=== PATIENT | male | born 1965 | race Caucasian/White ===

== ENCOUNTER 2016-05-18 22:40 | Emergency (ER) | payer OTHER ==
[~2016-05-18 22:40] MED LIST: PROTONIX40 MG PO
--- NOTE | 2016-05-18 23:49 | ED NURSING NOTES ---
Clinical Report - Nurses [facility] [address] [place] [address] 05/18/2016 22:41 Patient: ZULEIMA KEARNEY TRIAGE Triage time 22:47 May 18 2016. Chief Complaint: (HBP). SEPSIS SCREEN: Sepsis Screen: negative. Negative (no infection suspected/documented). VIVI COMA SCORE: [place] Coma Scale: 15- eyes open spontaneously (4); best verbal response- oriented x 4 (5); best motor response- obeys commands (6). --22:56 AliM 22:47 05/18/16. BP: 178/98. HR: 73. RR: 18 (regular, unlabored and normal). O2 saturation: 96%. Temp: 98.5 F (oral). Pain level now: 610. --22:56 AliM. Weight: 63.9 kg stated. Height/Length: 68 inches Per Patient. BMI: 21.4. --22:56 AliM. Medications Atenolol Oral. --22:53 AliM Tylenol PM Extra Strength Oral. --22:53 AliM Tylenol 8 Hour Oral. --22:53 AliM. Allergies No Known Drug Allergy. --22:54 AliM. History Arrived by private vehicle. Historian: patient. Accompanied by spouse. Primary physician (Ismael). This started just prior to arrival. ( Pt states he had an appt for a SSI and physician noticed high blood pressure. Physician told pt to come to ED if blood pressure does not come down. Pt and spouse has been monitoring BP today and BP has remained high. Pt also concerned about bump on inner right thigh that showed up tonight.). He has had fever (Pt reports feeling hot but no temp taken at home). No weakness, cough or difficulty breathing. Denies muscle aches. 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 PAST MEDICAL HX: Immunizations: up-to-date. SOCIAL HX: Current every day heavy tobacco smoker- 1-2 packs per day. Alcohol use; consumes two beers a day. No drug use. No infectious disease exposure. ABUSE ASSESSMENT: No report of abuse. FALL RISK ASSESSMENT: Fall risk assessment completed. No fall risk identified. NUTRITIONAL RISK ASSESSMENT: The nutritional risk assessment revealed no deficiencies. FUNCTIONAL ASSESSMENT: Functional assessment: no impairments noted. LEARNING NEEDS ASSESSMENT: The learning needs assessment revealed no barriers. SKIN INTEGRITY ASSESSMENT: Skin integrity risk assessment completed. No skin integrity risk identified. --22:56 AliM. PROBLEMS: Stomach bleeding. Myofascial Strain. Cervical Strain. Back Pain. GI Disease. Hep C. Hypertension. Hepatitis. Suture Removal. Laceration. Tetanus Status. --22:55 AliM Back Pain [RuleOut]. --22:55 AliM. ADDITIONAL SURGERIES: Endoscopy. --22:55 AliM. Interventions ID band on patient. --22:56 AliM. PHYSICAL ASSESSMENT Ambulatory to room. GENERAL / NEURO / PSYCH: Alert. Oriented X 4. Appears in no acute distress. HEENT: No facial asymmetry noted. Mucous membranes are pink. RESPIRATORY: Respirations not labored. Chest nontender. Breath sounds within normal limits. CVS: Normal sinus rhythm noted. Capillary refill less than 2 seconds. Pulses within normal limits. SKIN: Skin intact. Skin is warm and dry. Normal skin turgor. --22:58 AliM EXTREMITIES: Capillary refill is less than 2 seconds in the extremities. Extremity pulses are within normal limits. Extremities exhibit normal ROM. No motor deficit in the extremities. Normal gait. SKIN: Extremity wound present (Black nail bed on right big toe. Pt reports drainage from wound approx 2 weeks ago. No current drainage or swelling.). --23:04 AliM ( Bump on right inner thigh is intact, no clinical symptoms observed.). --23:12 AliM. NURSING PROGRESS NOTES The plan of care for this patient has been created. Monitoring of patient in place. Patient gowned. Head of bed elevated. Reassurance given. Call light placed in reach. Side rails up x 1. Bed placed in lowest position. Brakes of bed on. Patient ready for evaluation- ED physician notified. --22:59 AliM ( Pt and spouse has taken daily log of BP. Scanned and attached to file.). --23:13 AliM. DISPOSITION / DISCHARGE Departure time: 2350. Condition at departure: improved. No learning barriers present. Discharge instructions provided and reviewed with the patient. Reviewed medication(s) information. Prescription(s) given to the patient. Reviewed referral to family practice for followup. Verbalized understanding. Written instructions provided. The patient was discharged home. He left the Emergency Department ambulatory and via private vehicle. --23:55 Rosalia Merino R.N. 23:52 05/18/16. BP: 155/90. HR: 66. RR: 18. O2 saturation: 98%. Pain level now: 0/10. --23:55 Rosalia Merino R.N. Treatments reviewed (Reviewed taking BP 4 times a week, keep a log over 2 weeks, and take this info to your PCP). --23:56 Rosalia Merino R.N. Locked/Released at 05/18/2016 23:56 by Rosalia Merino R.N.
--- NOTE | 2016-05-18 23:49 | ED CLINICAL REPORT ---
Clinical Report - Physicians/Mid Levels [facility] [address] [place] [address] 05/18/2016 22:41 Patient: ZULEIMA KEARNEY Time Seen: 23:14. Arrived- By private vehicle. Historian- patient. HISTORY OF PRESENT ILLNESS Chief Complaint: (BUMP ON LEG AND HIGH BLOOD PRESSURE.). This started today Mr. Kearney was at an SSI evaluation today and the examiner noted high blood pressure and suggested that he get his BP checked. He also notes a bump on his medial R thigh. and is still present. (unknown onset). Not itchy or painful. It has been located on the right lower extremity. A cause has been identified. REVIEW OF SYSTEMS No cough, difficulty breathing, eye irritation, chest pain or abdominal pain. PAST HISTORY PCP: Corina PROBLEMS: Stomach bleeding. Myofascial Strain. Cervical Strain. Back Pain. GI Disease. Hep C. Hypertension. Hepatitis. Suture Removal. Laceration. Tetanus Status. ADDITIONAL SURGERIES: Endoscopy. SOCIAL HISTORY Current every day smoker. ADDITIONAL NOTES The nursing notes have been reviewed. PHYSICAL EXAM Vital Signs: 05/18/2016 23:52 BP: 155/90. HR: 66. RR: 18. O2 saturation: 98%. Pain level now: 0/10. 05/18/2016 22:47 BP: 178/98. HR: 73. RR: 18. O2 saturation: 96%. Temp: 98.5 F. Pain level now: 6/10. Appearance: Alert. No acute distress. Respiratory: No respiratory distress. Abdomen: Nontender. Skin: (Single nonthrombosed varicose vein in medial R thigh). PROGRESS AND PROCEDURES Course of Care: No hypertensive urgency. No DVT. CLINICAL IMPRESSION VARICOSE VEIN R LEG HYPERTENSION. INSTRUCTIONS (TAKE YOU BLOOD PRESSURE 4 TIMES A WEEK AND KEEP A LOG. IN 2 WEEKS TAKE YOUR LOG TO SEE YOUR DR TAKE YOUR USUAL BP MEDICINE YOUR LEG LUMP IS A VARICOSE VEIN AND NEEDS NO SPECIAL CARE.). Follow-up: Follow up with your doctor CORINA in two weeks. Understanding of the discharge instructions verbalized by patient and family. (Electronically signed by Kevyn Casarez MD 05/20/2016 10:45)
--- NOTE | 2016-05-18 23:49 | ED NURSING NOTES ---
Clinical Report - Nurses [facility] [address] [place] [address] 05/18/2016 22:41 Patient: ZULEIMA KEARNEY TRIAGE Triage time 22:47 May 18 2016. Chief Complaint: (HBP). SEPSIS SCREEN: Sepsis Screen: negative. Negative (no infection suspected/documented). VIIV COMA SCORE: [place] Coma Scale: 15- eyes open spontaneously (4); best verbal response- oriented x 4 (5); best motor response- obeys commands (6). --22:56 AliM 22:47 05/18/16. BP: 178/98. HR: 73. RR: 18 (regular, unlabored and normal). O2 saturation: 96%. Temp: 98.5 F (oral). Pain level now: 610. --22:56 AliM. Weight: 63.9 kg stated. Height/Length: 68 inches Per Patient. BMI: 21.4. --22:56 AliM. Medications Atenolol Oral. --22:53 AliM Tylenol PM Extra Strength Oral. --22:53 AliM Tylenol 8 Hour Oral. --22:53 AliM. Allergies No Known Drug Allergy. --22:54 AliM. History Arrived by private vehicle. Historian: patient. Accompanied by spouse. Primary physician (Ismael). This started just prior to arrival. ( Pt states he had an appt for a SSI and physician noticed high blood pressure. Physician told pt to come to ED if blood pressure does not come down. Pt and spouse has been monitoring BP today and BP has remained high. Pt also concerned about bump on inner right thigh that showed up tonight.). He has had fever (Pt reports feeling hot but no temp taken at home). No weakness, cough or difficulty breathing. Denies muscle aches. 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 PAST MEDICAL HX: Immunizations: up-to-date. SOCIAL HX: Current every day heavy tobacco smoker- 1-2 packs per day. Alcohol use; consumes two beers a day. No drug use. No infectious disease exposure. ABUSE ASSESSMENT: No report of abuse. FALL RISK ASSESSMENT: Fall risk assessment completed. No fall risk identified. NUTRITIONAL RISK ASSESSMENT: The nutritional risk assessment revealed no deficiencies. FUNCTIONAL ASSESSMENT: Functional assessment: no impairments noted. LEARNING NEEDS ASSESSMENT: The learning needs assessment revealed no barriers. SKIN INTEGRITY ASSESSMENT: Skin integrity risk assessment completed. No skin integrity risk identified. --22:56 AliM. PROBLEMS: Stomach bleeding. Myofascial Strain. Cervical Strain. Back Pain. GI Disease. Hep C. Hypertension. Hepatitis. Suture Removal. Laceration. Tetanus Status. --22:55 AliM Back Pain [RuleOut]. --22:55 AliM. ADDITIONAL SURGERIES: Endoscopy. --22:55 AliM. Interventions ID band on patient. --22:56 AliM. PHYSICAL ASSESSMENT Ambulatory to room. GENERAL / NEURO / PSYCH: Alert. Oriented X 4. Appears in no acute distress. HEENT: No facial asymmetry noted. Mucous membranes are pink. RESPIRATORY: Respirations not labored. Chest nontender. Breath sounds within normal limits. CVS: Normal sinus rhythm noted. Capillary refill less than 2 seconds. Pulses within normal limits. SKIN: Skin intact. Skin is warm and dry. Normal skin turgor. --22:58 AliM EXTREMITIES: Capillary refill is less than 2 seconds in the extremities. Extremity pulses are within normal limits. Extremities exhibit normal ROM. No motor deficit in the extremities. Normal gait. SKIN: Extremity wound present (Black nail bed on right big toe. Pt reports drainage from wound approx 2 weeks ago. No current drainage or swelling.). --23:04 AliM ( Bump on right inner thigh is intact, no clinical symptoms observed.). --23:12 AliM. NURSING PROGRESS NOTES The plan of care for this patient has been created. Monitoring of patient in place. Patient gowned. Head of bed elevated. Reassurance given. Call light placed in reach. Side rails up x 1. Bed placed in lowest position. Brakes of bed on. Patient ready for evaluation- ED physician notified. --22:59 AliM ( Pt and spouse has taken daily log of BP. Scanned and attached to file.). --23:13 AliM. DISPOSITION / DISCHARGE Departure time: 2350. Condition at departure: improved. No learning barriers present. Discharge instructions provided and reviewed with the patient. Reviewed medication(s) information. Prescription(s) given to the patient. Reviewed referral to family practice for followup. Verbalized understanding. Written instructions provided. The patient was discharged home. He left the Emergency Department ambulatory and via private vehicle. --23:55 Rosalia Merino R.N. 23:52 05/18/16. BP: 155/90. HR: 66. RR: 18. O2 saturation: 98%. Pain level now: 0/10. --23:55 Rosalia Merino R.N. Treatments reviewed (Reviewed taking BP 4 times a week, keep a log over 2 weeks, and take this info to your PCP). --23:56 Rosalia Merino R.N. Locked/Released at 05/18/2016 23:56 by Rosalia Merino R.N.
--- NOTE | 2016-05-18 23:49 | ED CLINICAL REPORT ---
Clinical Report - Physicians/Mid Levels [facility] [address] [place] [address] 05/18/2016 22:41 Patient: ZULEIMA KEARNEY Time Seen: 23:14. Arrived- By private vehicle. Historian- patient. HISTORY OF PRESENT ILLNESS Chief Complaint: (BUMP ON LEG AND HIGH BLOOD PRESSURE.). This started today Mr. Kearney was at an SSI evaluation today and the examiner noted high blood pressure and suggested that he get his BP checked. He also notes a bump on his medial R thigh. and is still present. (unknown onset). Not itchy or painful. It has been located on the right lower extremity. A cause has been identified. REVIEW OF SYSTEMS No cough, difficulty breathing, eye irritation, chest pain or abdominal pain. PAST HISTORY PCP: Corina PROBLEMS: Stomach bleeding. Myofascial Strain. Cervical Strain. Back Pain. GI Disease. Hep C. Hypertension. Hepatitis. Suture Removal. Laceration. Tetanus Status. ADDITIONAL SURGERIES: Endoscopy. SOCIAL HISTORY Current every day smoker. ADDITIONAL NOTES The nursing notes have been reviewed. PHYSICAL EXAM Vital Signs: 05/18/2016 23:52 BP: 155/90. HR: 66. RR: 18. O2 saturation: 98%. Pain level now: 0/10. 05/18/2016 22:47 BP: 178/98. HR: 73. RR: 18. O2 saturation: 96%. Temp: 98.5 F. Pain level now: 6/10. Appearance: Alert. No acute distress. Respiratory: No respiratory distress. Abdomen: Nontender. Skin: (Single nonthrombosed varicose vein in medial R thigh). PROGRESS AND PROCEDURES Course of Care: No hypertensive urgency. No DVT. CLINICAL IMPRESSION VARICOSE VEIN R LEG HYPERTENSION. INSTRUCTIONS (TAKE YOU BLOOD PRESSURE 4 TIMES A WEEK AND KEEP A LOG. IN 2 WEEKS TAKE YOUR LOG TO SEE YOUR DR TAKE YOUR USUAL BP MEDICINE YOUR LEG LUMP IS A VARICOSE VEIN AND NEEDS NO SPECIAL CARE.). Follow-up: Follow up with your doctor CORINA in two weeks. Understanding of the discharge instructions verbalized by patient and family. (Electronically signed by Kevyn Casarez MD 05/20/2016 10:45)
--- NOTE | 2016-05-20 10:45 | ED MED RECONCILIATION SUMMARY ---
Patient: ZULEIMA KEARNEY Medication Reconciliation Report [facility] VisitID: [id number] [address] [place] [address] 50y, M Registration Date/Time: 05/18/2016 Weight: 63.9 kg Height/Length: 68 in. BMI: 21.4 ALLERGIES: No Known Drug Allergy The patient's Home Medications are listed below: THE FOLLOWING MEDICATIONS NEED TO BE RECONCILED: Atenolol Oral Tylenol 8 Hour Oral Tylenol PM Extra Strength Oral The source(s) of the original Home Medication information: Not obtained. The following Medications were given to the patient in the Emergency Department: None. The following Medications were prescribed to the patient: None.
--- NOTE | 2016-05-20 10:45 | ED DISCHARGE INSTRUCTIONS ---
Patient: ZULEIMA KEARNEY General Instructions [facility] VisitID: [id number] [address] [place] [address] 50y, M Registration Date/Time: 05/18/2016 VARICOSE VEIN R LEG HYPERTENSION. INSTRUCTIONS (TAKE YOU BLOOD PRESSURE 4 TIMES A WEEK AND KEEP A LOG. IN 2 WEEKS TAKE YOUR LOG TO SEE YOUR DR TAKE YOUR USUAL BP MEDICINE YOUR LEG LUMP IS A VARICOSE VEIN AND NEEDS NO SPECIAL CARE.). Follow-up: Follow up with your doctor CORINA in two weeks. Understanding of the discharge instructions verbalized by patient and family. (Electronically signed by Kevyn Casarez MD 05/20/2016 10:45)
--- NOTE | 2016-05-20 10:45 | ED DISCHARGE INSTRUCTIONS ---
Patient: ZULEIMA KEARNEY General Instructions [facility] VisitID: [id number] [address] [place] [address] 50y, M Registration Date/Time: 05/18/2016 VARICOSE VEIN R LEG HYPERTENSION. INSTRUCTIONS (TAKE YOU BLOOD PRESSURE 4 TIMES A WEEK AND KEEP A LOG. IN 2 WEEKS TAKE YOUR LOG TO SEE YOUR DR TAKE YOUR USUAL BP MEDICINE YOUR LEG LUMP IS A VARICOSE VEIN AND NEEDS NO SPECIAL CARE.). Follow-up: Follow up with your doctor CORINA in two weeks. Understanding of the discharge instructions verbalized by patient and family. (Electronically signed by Kevyn Casarez MD 05/20/2016 10:45)
--- NOTE | 2016-05-20 10:45 | ED MED RECONCILIATION SUMMARY ---
Patient: ZULEIMA KEARNEY Medication Reconciliation Report [facility] VisitID: [id number] [address] [place] [place] [address] 50y, M Registration Date/Time: 05/18/2016 Weight: 63.9 kg Height/Length: 68 in. BMI: 21.4 ALLERGIES: No Known Drug Allergy The patient's Home Medications are listed below: THE FOLLOWING MEDICATIONS NEED TO BE RECONCILED: Atenolol Oral Tylenol 8 Hour Oral Tylenol PM Extra Strength Oral The source(s) of the original Home Medication information: Not obtained. The following Medications were given to the patient in the Emergency Department: None. The following Medications were prescribed to the patient: None.
--- NOTE | 2016-05-20 10:45 | ED MAR SUMMARY ---
..... Medication Administration Record [facility] [address] [place] [address] Patient: ZULEIMA KEARNEY Visit ID: [id number] 50y, M Weight: 63.9 kg Height/Length: 68 in BMI: 21.4 ALLERGIES: No Known Drug Allergy
--- NOTE | 2016-05-20 10:45 | ED MAR SUMMARY ---
..... Medication Administration Record [facility] [address] [place] [address] Patient: ZULEIMA KEARNEY Visit ID: [id number] 50y, M Weight: 63.9 kg Height/Length: 68 in BMI: 21.4 ALLERGIES: No Known Drug Allergy
== END 2016-05-18 23:50 | disposition home or self-care (01) ==
LOC: ED SRH 22:40
DX: I83.91 Asymptomatic varicose veins of right lower extremity (principal); I10 Essential (primary) hypertension; F17.210 Nicotine dependence, cigarettes, uncomplicated

== ENCOUNTER 2016-06-10 10:07 | Outpatient (CLI) | payer OTHER ==
--- NOTE | 2016-06-10 11:12 | DIAGNOSTIC IMAGING REPORT ---
PROCEDURE: CT THORAX WITH CONTRAST INDICATION: HEMADIAPHRAGM PARALYSIS TECHNIQUE: 100 ml of Isovue 300 was injected intravenously and axial images were obtained of the chest with coronal and sagittal reformations. COMPARISON: 05/05/2014 FINDINGS: There is new asymmetric elevation of the left hemidiaphragm without discrete diaphragmatic defect. Mild compressive atelectasis at the left lung base without evidence for proximal airway obstruction. No evidence of parenchymal or pleural lesions. The thyroid gland is normal. Thoracic aorta is normal caliber. The great vessels demonstrates normal branching pattern. The central pulmonary arteries are normal caliber. Heart size is normal. No pericardial effusion. No adenopathy or mediastinal masses. Moderate emphysematous change. No suspicious nodules. The esophagus is normal in caliber without hiatal hernia. The airway is patent and branches normally. No pleural effusions or pneumothorax. Osseous structures are intact. The images obtained of the upper abdomen demonstrate the liver enlarged in the transverse diameter. Gabby esophageal varices with drainage into the super hepatic inferior vena cava, but normal size spleen. IMPRESSION: 1. Asymmetric left hemidiaphragm elevation still of unclear etiology. This may be secondary to the diaphragmatic fiber thinning and benign eventration. Phrenic nerve injury can be further evaluated with sniff test (chest fluoroscopy ). 2. Moderate emphysema. 3. Interval increase in size of left upper quadrant esophageal varices. 4. Enlarged left lobe of the liver, fairly stable. Given varices, consider early cirrhosis. Normal sized spleen.
--- NOTE | 2016-06-10 11:22 | DIAGNOSTIC IMAGING REPORT ---
PROCEDURE: XR CHEST FLUOROSCOPY W/2 VIEW (fluoroscopic "sniff" test) INDICATION: Possible left diaphragmatic paralysis. TECHNIQUE: The patient performed "Sniff" maneuver under fluoroscopic guidance. Fluoroscopy time 0.8 minutes (266.29 mGy). Two AP fluoroscopic views were obtained. COMPARISON: Compared to CT thorax earlier today (06/10/2016). FINDINGS: Confirmation of left diaphragmatic paralysis with paradoxical motion of the left hemidiaphragm. IMPRESSION: 1. Confirmation of left diaphragmatic paralysis. 2. Findings discussed with the patient and called to Dr. Davidson.
== END 2016-06-10 23:00 ==
LOC: CT SRH 10:07
DX: J98.6 Disorders of diaphragm (principal); J43.9 Emphysema, unspecified
CPT/HCPCS: 90074; 90100; 95059